=== PATIENT | female | born 1990 | race Caucasian/White ===

== ENCOUNTER → 2016-07-06 | Outpatient (REF) | payer OTHER ==
[~2016-07-06] MED LIST: ACET50TA PO; IBUP80TA PO; NUPE10OI TOP; NUPE1OIN2 TOP; VITAPRTA PO
== END ==
LOC: M SFHCLERA 18:35
PROVIDERS: ATTEND Physician Assistant
DX: R30.0 Dysuria (principal)

== ENCOUNTER 2017-04-04 09:50 | Day surgery (SDC) | payer OTHER ==
[~2017-04-04 09:50] MED LIST changes: -ACET50TA PO; +GLYCOPYRROLATE INJ 0.2 MG/ML 2 ML VIAL As Ordered; -IBUP80TA PO; +KETOROLAC 60 MG/2 ML VIAL (J1885) As Ordered; +LIDOCAINE 2% INJ 100 MG/5 ML SDV (FOR ANES.) As Ordered; +MIDAZOLAM INJ 2 MG/2 ML VIAL (J2250) As Ordered; +NEOSTIGMINE 10 MG/10 ML VIAL (J2710) As Ordered; -NUPE10OI TOP; -NUPE1OIN2 TOP; +ONDANSETRON 4MG/2ML VIAL (J2405) As Ordered; +PROPOFOL 200 MG/20 ML VIAL As Ordered; -VITAPRTA PO; +dexameTHASONE 4 MG/ML 1ML VIAL (J1100) As Ordered; +fentaNYL 100 MCG/2 ML INJECTION (J3010) As Ordered
[2017-04-04] MEDS ORDERED: NEOSTIGMINE 10 MG/10 ML VIAL (J2710) (09:51)
[2017-04-04 10:15] LABS: HEMATOCRIT 38.3 % (36.0-47.0); HEMOGLOBIN 12.7 g/dl (12.0-16.0)
[2017-04-04] MEDS: LR 1,000 ML IV (10:25)
[2017-04-04 10:33] LABS: CONTROL LINE HCG INT CTR LINE PRESENT; HCG, SERUM QUALITATIVE NEGATIVE (NEGATIVE)
[2017-04-04] MEDS: BUPIVACAINE HCL 0.25% 30 ML VIAL As Ordered (16:01)
[2017-04-04] MEDS ORDERED: fentaNYL 100 MCG/2 ML INJECTION (J3010) As Ordered (16:41)
[2017-04-04] MEDS: ONDANSETRON 4MG/2ML VIAL (J2405) IV (16:43)
[2017-04-04] MEDS ORDERED: ONDANSETRON 4MG/2ML VIAL (J2405) As Ordered (16:43)
[2017-04-04] MEDS: fentaNYL 100 MCG/2 ML INJECTION (J3010) IV ×3 (16:43→17:00)
[2017-04-04] MEDS ORDERED: PERCOCET 5MG/325MG TAB PO (17:00)
[2017-04-04] MEDS ORDERED: LR 1,000 ML IV (17:00)
[2017-04-04] MEDS: METOCLOPRAMIDE INJ 10MG/2ML VIAL (J2765) IV (17:25)
== END 2017-04-04 19:15 | disposition home or self-care (01) ==
LOC: M SDC 09:50
DX: Z30.2 Encounter for sterilization (principal); D64.9 Anemia, unspecified; A60.00 Herpesviral infection of urogenital system, unspecified; R06.02 Shortness of breath
CPT/HCPCS: 58670

== ENCOUNTER → 2017-04-18 | Outpatient (REF) | payer OTHER | LOC: M SFHCLERA 19:45 | DX: J02.9 Acute pharyngitis, unspecified (principal) ==

== ENCOUNTER → 2017-06-17 | Outpatient (REF) | payer OTHER ==
[2017-06-17 20:20] LABS: CHLAMYDIA DNA AMPLIFICATION NEGATIVE (NEGATIVE); GC DNA AMPLIFICATION NEGATIVE (NEGATIVE)
== END ==
LOC: M SFHCLERA 17:16
DX: L29.8 Other pruritus (principal)
CPT/HCPCS: 87077; 87186; 87591

== ENCOUNTER → 2017-07-22 | Outpatient (CLI) | payer OTHER | LOC: M WUC 16:48 | DX: M54.5 Low back pain (principal) | CPT/HCPCS: 72110 ==

== ENCOUNTER → 2017-08-24 | Outpatient (REF) | payer OTHER | LOC: M WUC 18:45 | DX: R30.0 Dysuria (principal) | CPT/HCPCS: 87186 ==